=== PATIENT | male | born 1955 | race Caucasian/White ===

== ENCOUNTER 2017-08-30 08:59 | Day surgery (SDC) | payer OTHER ==
[~2017-08-30] VITALS: Ht 177.8 cm; Wt 82.0 kg
[2017-08-30] MEDS ORDERED: LIPITOR 40MG TA40 MG PO (09:57)
[2017-08-30] MEDS ORDERED: PROTONIX 40MG T40 MG PO (09:58)
[2017-08-30] MEDS ORDERED: DIOVAN 160MG160 MG PO (09:59)
[2017-08-30] MEDS ORDERED: ZEBETA 5MG5 MG PO (10:00)
[2017-08-30] MEDS ORDERED: ENTOCORT EC3 MG PO (10:01)
[2017-08-30] MEDS ORDERED: APRISO0.375 GM PO (10:02)
[2017-08-30] MEDS ORDERED: ZYRTEC 10MG10 MG PO (10:03)
[2017-08-30] MEDS ORDERED: MILK THISTLE150 MG PO (10:05)
[2017-08-30] MEDS ORDERED: MULTI VITAMINS1 TAB PO (10:05)
[2017-08-30] MEDS ORDERED: TURMERIC500 MG PO (10:06)
[2017-08-30] MEDS ORDERED: PROBIOTIC ACID1 EAC3 PO (10:06)
[2017-08-30] MEDS ORDERED: THE MEDICINE S200 M2 PO (10:06)
[2017-08-30] MEDS ORDERED: GLUCOSAMINE & C1 TAB PO (10:07)
[2017-08-30 10:15] VITALS: BP 167/102; PULSE 58; TEMP 98.6
[2017-08-30 11:25] VITALS: BP 158/93; PULSE 54; TEMP 98.2
[2017-08-30 11:30] VITALS: BP 142/89; PULSE 54
[2017-08-30 11:45] VITALS: BP 149/131; PULSE 64
[2017-08-30 11:56] VITALS: BP 151/95; PULSE 53
[2017-08-30 13:51] VITALS: BP 163/98; PULSE 56
== END 2017-08-30 12:13 | disposition home or self-care (01) ==
LOC: SDCO 08:59
DX: K52.832 Lymphocytic colitis (principal); R19.7 Diarrhea, unspecified; K21.0 Gastro-esophageal reflux disease with esophagitis; Z80.0 Family history of malignant neoplasm of digestive organs; Z88.4 Allergy status to anesthetic agent; Z88.5 Allergy status to narcotic agent; Z88.1 Allergy status to other antibiotic agents; E78.00 Pure hypercholesterolemia, unspecified; I10 Essential (primary) hypertension
CPT/HCPCS: J2250; J2405; J3010; J7030

== ENCOUNTER → 2020-04-18 | Outpatient (CLI) | payer MEDICARE, OTHER ==
[~2020-04-18] MED LIST: APRISO0.375 GM PO; DIOVAN 160MG160 MG PO; ENTOCORT EC3 MG PO; GLUCOSAMINE & C1 TAB PO; LIPITOR 40MG TA40 MG PO; MILK THISTLE150 MG PO; MULTI VITAMINS1 TAB PO; PROBIOTIC ACID1 EAC3 PO; PROTONIX 40MG T40 MG PO; THE MEDICINE S200 M2 PO; TURMERIC500 MG PO; ZEBETA 5MG5 MG PO; ZYRTEC 10MG10 MG PO
== END ==
LOC: MHCPAIN 14:27
DX: M47.817 Spondylosis without myelopathy or radiculopathy, lumbosacral region (principal); M54.5 Low back pain; M53.3 Sacrococcygeal disorders, not elsewhere classified; M96.1 Postlaminectomy syndrome, not elsewhere classified
CPT/HCPCS: J1040

== ENCOUNTER → 2020-04-18 | Outpatient (CLI) | payer MEDICARE, OTHER | LOC: MHCPAIN 10:00 | DX: M47.817 Spondylosis without myelopathy or radiculopathy, lumbosacral region (principal); M54.5 Low back pain; M53.3 Sacrococcygeal disorders, not elsewhere classified; M96.1 Postlaminectomy syndrome, not elsewhere classified | CPT/HCPCS: G0260; G0463 ==

== ENCOUNTER → 2020-05-03 | Outpatient (CLI) | payer MEDICARE, OTHER | LOC: MHCPAIN 10:49 | DX: M47.817 Spondylosis without myelopathy or radiculopathy, lumbosacral region (principal); M53.3 Sacrococcygeal disorders, not elsewhere classified; M96.1 Postlaminectomy syndrome, not elsewhere classified; M54.5 Low back pain | CPT/HCPCS: G0463 ==

== ENCOUNTER → 2020-06-28 | Outpatient (CLI) | payer MEDICARE, OTHER | LOC: MHCPAIN 10:53 | DX: M47.817 Spondylosis without myelopathy or radiculopathy, lumbosacral region (principal); M54.5 Low back pain; M96.1 Postlaminectomy syndrome, not elsewhere classified; M53.3 Sacrococcygeal disorders, not elsewhere classified | CPT/HCPCS: G0463 ==

== ENCOUNTER → 2020-07-13 | Outpatient (CLI) | payer MEDICARE, OTHER | LOC: ZCOL.LAB 16:42 | DX: T81.30XA Disruption of wound, unspecified, initial encounter (principal) ==